=== PATIENT | female | born 1990 | race Caucasian/White ===

== ENCOUNTER 2016-11-03 06:26 | Day surgery (SDC) | payer BC ==
[~2016-11-03 06:26] MED LIST: Dextrose 5%-0.45% NaCl 1,000 ML IV SCH; Midazolam 1 MG/ML 2 ML SDV ONE; Sodium Chloride 0.9% 10 ML Syringe FLUSH PRN; fentaNYL 100 MCG/2 ML SDV ONE
[2016-11-03] MEDS ORDERED: fentaNYL 100 MCG/2 ML SDV IV ONE ×3 (07:54→16:48)
[2016-11-03] MEDS ORDERED: Midazolam 1 MG/ML 2 ML SDV IV ONE ×3 (07:55→16:48)
--- NOTE | 2016-11-03 08:56 | OR ---
DATE: 11/03/2016 PROCEDURES: Esophagogastroduodenoscopy and multiple pinch biopsies. INSTRUMENT USED: [id number] Olympus video panendoscope. PREMEDICATIONS: No oral topical anesthesia used. Fentanyl 100 mcg intravenous, Versed 2 mg intravenous. The procedure was done under pulse oximetry, BP recording, and services rep. INDICATION: The patient with persistent throat discomfort, associated chest discomfort, and regurgitation as well as dyspepsia unexplained and not responsive to medical measures, on PPI. Esophagogastroduodenoscopy is performed for detection of any active erosive lesions, H. pylori status to be determined, biopsies to be taken for esophageal eosinophilia if indicated, endoscopic hemostasis therapy if needed. DESCRIPTION OF PROCEDURE: The scope was passed with ease. Adequate visualization of the esophagus was made from proximal to distal areas. No upper esophageal lesions identified. No distal esophageal stricture. No uphill or downhill esophageal varices. No Miroslava-Ospina tear. No evidence of erosive esophagitis by [place] criteria. Z-line was seen at around 35 cm distal to the oral verge, 4-quadrant biopsies were taken from the area and sent for any histopathologic evidence of intestinal metaplasia. Four-quadrant biopsies were taken from the distal and proximal esophagus and sent for any histopathologic evidence of esophageal eosinophilia. No proximal gastric varices noted. Gastric fundus examination by retroflexion showed no malignant lesions. Diminutive benign-appearing gastric fundus polyps were noted. No gastric ulcer, malignant mass, or vascular ectasia identified. Multiple pinch biopsies were taken from the gastric antrum and proximal body and sent for PyloriTek test for H. pylori and histopathology. Duodenal bulb showed no ulcer. Visualized second part of the duodenum was unremarkable. No bleeding was noted from any of the visualized areas at the completion of examination. Photographs were taken of the duodenal bulb, gastric antrum, fundus, and distal esophagus. IMPRESSION: Diminutive gastric fundus polyps. The patient tolerated the procedure well. [facility] /[id number]
[2016-11-03 09:11] VITALS: BP 104/68
== END 2016-11-03 10:11 | disposition home or self-care (01) ==
LOC: DL.ENDO 06:26
PROVIDERS: ATTEND Internal Medicine Gastroenterology
DX: K31.7 Polyp of stomach and duodenum (principal); K20.9 Esophagitis, unspecified; K31.89 Other diseases of stomach and duodenum; F32.9 Major depressive disorder, single episode, unspecified; I10 Essential (primary) hypertension; E03.9 Hypothyroidism, unspecified; Z90.49 Acquired absence of other specified parts of digestive tract; Z88.8 Allergy status to other drugs, medicaments and biological substances; Z98.890 Other specified postprocedural states; Z79.899 Other long term (current) drug therapy
CPT/HCPCS: 43239; 87077; J2250; J3010; J7042

== ENCOUNTER 2016-12-28 07:00 | Emergency (ER) | payer BC ==
[2016-12-28 07:08] VITALS: BP 132/85
--- NOTE | 2016-12-28 07:19 | EDM.PDOC ---
ED HPI GENERAL MEDICAL PROBLEM - General Chief Complaint: Lower Extremity Injury/Pain Stated Complaint: SLIPPED AND FELL HURT ANKLE [id number] Time Seen by Provider: 12/28/16 07:14 Source of Information: Reports: Patient History Limitations: Reports: No Limitations - History of Present Illness INITIAL COMMENTS - FREE TEXT/NARRATIVE: 26 yo female presents with left ankle pain s/p SLF. C/o pain to medial aspect of left ankle after falling while outside going to her car. No other complaints. Onset: Today, Sudden Duration: Constant Location: Reports: Lower Extremity, Left Quality: Reports: Ache, Throbbing Severity: Moderate Improves with: Reports: None Worsens with: Reports: None, Movement Context: Reports: Activity Associated Symptoms: Reports: No Other Symptoms Left Upper Ankle Pain Score (Numeric/FACES): 7 - Related Data Allergies Allergy/AdvReac Type Severity Reaction Status Date / Time zolpidem [From Ambien] Allergy Hallucinati Verified 12/28/16 07:06 ons doxylamine AdvReac Hallucinati Verified 12/28/16 07:06 ons Home Meds: Home Meds Propranolol [Inderal] 20 mg PO DAILY 04/05/15 [History] Sertraline HCl [Zoloft] 100 mg PO DAILY 01/13/16 [History] Omeprazole 20 mg PO DAILY 11/03/16 [History] Levothyroxine [Levothyroxine] 25 mcg PO DAILY 12/28/16 [History] Past Medical History - Past Health History Medical/Surgical History: Denies Medical/Surgical History HEENT History: Reports: Allergic Rhinitis, Other (See Below) 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 Cardiovascular History: Reports: Arrhythmia, Hypertension, Other (See Below) Other Cardiovascular History: Tachycardia, palpitations, svt Respiratory History: Reports: None Gastrointestinal History: Reports: None Other Gastrointestinal History: Appendectomy done 2 yrs ago - 2012 Genitourinary History: Reports: None TAWER History: Reports: Other OB/BYN History: with pre eclampsia last and tachycardia Musculoskeletal History: Reports: None Neurological History: Reports: None Psychiatric History: Reports: Depression, Panic Attack, Other (See Below) Other Psychiatric History: SOMATIZATION DISORDER Endocrine/Metabolic History: Reports: Hyperthyroidism Hematologic History: Reports: None Immunologic History: Reports: None Oncologic (Cancer) History: Reports: None Dermatologic History: Reports: None - Infectious Disease History Infectious Disease History: Reports: C-Difficile, Chicken Pox - Past Surgical History Head Surgeries/Procedures: Reports: None HEENT Surgical History: Reports: Adenoidectomy, Tonsillectomy, Other (See Below) Other HEENT Surgeries/Procedures: ADENOIDECTOMY X2 Cardiovascular Surgical History: Reports: None GI Surgical History: Reports: Appendectomy Musculoskeletal Surgical History: Reports: None, Arthroscopic Knee Social & Family History - Family History Family Medical History: Noncontributory - Tobacco Use Smoking Status *Q: Never Smoker Second Hand Smoke Exposure: No - Caffeine Use Caffeine Use: Reports: Coffee, Soda, Tea Other Caffeine Use: 1 cup daily - Alcohol Use Days Per Week of Alcohol Use: 0 Number of Drinks Per Day: 1 Total Drinks Per Week: 0 - Recreational Drug Use Recreational Drug Use: No - Living Situation & Occupation Living situation: Reports: , with Spouse Occupation: Employed Review of Systems - Review of Systems Review Of Systems: ROS reveals no pertinent complaints other than HPI. ED EXAM, GENERAL - Physical Exam Exam: See Below Exam Limited By: No Limitations General Appearance: Alert, WD/WN, No Apparent Distress Respiratory/Chest: No Respiratory Distress, Lungs Clear, Normal Breath Sounds, No Accessory Muscle Use, Chest Non-Tender Cardiovascular: Normal Peripheral Pulses, Regular Rate, Rhythm, No Edema, No Gallop, No JVD, No Murmur, No Rub Extremities: Normal Inspection, No Pedal Edema, Normal Capillary Refill, Joint Swelling (mild at ankle), Leg Pain, Limited Range of Motion Neurological: Alert, Oriented, CN II-XII Intact, Normal Cognition, No Motor/ Sensory Deficits, Abnormal Gait (limps due to pain) Skin Exam: Warm, Dry, Intact, Normal Color, No Rash Course - Vital Signs Last Recorded V/S: Last Vital Signs Temp 97.6 F 12/28/16 07:08 Pulse 88 12/28/16 07:08 Resp 16 12/28/16 07:08 BP 132/85 12/28/16 07:08 Pulse Ox 100 12/28/16 07:08 - Orders/Labs/Meds Orders: Active Orders 24 hr Category Date Time Status Ankle Min 3V Lt [CR] Urgent Exams 12/28/16 07:19 Taken Meds: Medications Discontinued Medications Generic Name Dose Route Start Last Admin Trade Name Freq PRN Reason Stop Dose Admin Ketorolac Tromethamine 60 mg 12/28/16 07:20 12/28/16 07:28 Toradol IM 12/28/16 07:21 60 mg ONETIME ONE Administration - Re-Assessments/Exams Free Text/Narrative Re-Assessment/Exam: 12/28/16 07:47 No acute fractures noted Departure - Departure Time of Disposition: 07:50 Disposition: Home, Self-Care 01 Condition: Good Clinical Impression: Ankle sprain Qualifiers: Encounter type: initial encounter Involved ligament of ankle: unspecified ligament Laterality: left Qualified Code(s): S93.402A - Sprain of unspecified ligament of left ankle, initial encounter - Discharge Information Instructions: Ankle Sprain, [id number] Forms: ED Department Discharge, ED Return to Work/School Form Additional Instructions: Keep ankle iced and elevated to decrease swelling. Take Motrin for pain as needed up to three times a day. Follow up with your PCP in 1 week. Return for worsening symptoms. - My Orders Last 24 Hours: My Active Orders 12/28/16 07:19 Ankle Min 3V Lt [CR] Urgent - Assessment/Plan Last 24 Hours: My Active Orders 12/28/16 07:19 Ankle Min 3V Lt [CR] Urgent
[2016-12-28] MEDS ORDERED: Ketorolac 30 MG/ML SDV IM ONE (07:20)
== END 2016-12-28 07:58 | disposition home or self-care (01) ==
LOC: DL.ED 07:00
DX: S93.402A Sprain of unspecified ligament of left ankle, initial encounter (principal); I10 Essential (primary) hypertension; F32.9 Major depressive disorder, single episode, unspecified; Z88.8 Allergy status to other drugs, medicaments and biological substances; Z79.899 Other long term (current) drug therapy; W19.XXXA Unspecified fall, initial encounter; Y93.89 Activity, other specified; Y92.89 Other specified places as the place of occurrence of the external cause
CPT/HCPCS: 73610; 96372; 99283; J1885

== ENCOUNTER 2017-07-09 09:23 | Emergency (ER) | payer BC ==
--- NOTE | 2017-07-09 09:11 | EDM.PDOC ---
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 She sat down and "blacked out". Denies fall or head injury. Co- workers told her she was briefly unresponsive and had a "blank stare" for a few seconds then began looking around and wondered what happened. She denies fever, chills, shortness of breath, or substernal chest pain. She reports 1 weeks duration of sharp right lower chest wall/rib pain that is worse with movement and palpation. She was seen at [facility] ER on 07/06/17 for tachycardia and the Rt chest wall pain to r/o PE and treat her headache. She states that PE was r/o by CT chest, and other than an incidental UTI no other abnormalities were found (records are being obtained for review). 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 Pt had no new complaints on arrival to the ER, but during the ER stay developed a 10/10 headache that has been recurrent for this past year. Onset: Today Duration: Resolved Prior to Arrival Location: Reports: Generalized Severity: Moderate Improves with: Reports: None Worsens with: Reports: None Associated Symptoms: Reports: No Other Symptoms Chest Pain Score (Numeric/FACES): 10 - Related Data Allergies Allergy/AdvReac Type Severity Reaction Status Date / Time zolpidem [From Ambien] Allergy Hallucinati Verified 12/28/16 07:06 ons doxylamine AdvReac Hallucinati Verified 12/28/16 07:06 ons Home Meds: Home Meds Propranolol [Inderal] 20 mg PO DAILY 04/05/15 [History] Sertraline HCl [Zoloft] 100 mg PO DAILY 01/13/16 [History] Omeprazole 20 mg PO DAILY 11/03/16 [History] Levothyroxine 25 mcg PO DAILY 12/28/16 [History] Past Medical History - Past Health History Medical/Surgical History: Denies Medical/Surgical History HEENT History: Reports: Allergic Rhinitis, Other (See Below) 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 Cardiovascular History: Reports: Arrhythmia, Hypertension, Other (See Below) Other Cardiovascular History: Tachycardia, palpitations, svt Respiratory History: Reports: None Gastrointestinal History: Reports: None Other Gastrointestinal History: Appendectomy done 2 yrs ago - 2012 Genitourinary History: Reports: None WELT SLASHER History: Reports: Other OB/BYN History: with pre eclampsia last and tachycardia Musculoskeletal History: Reports: RA, SLE Neurological History: Reports: None Psychiatric History: Reports: Anxiety, Depression, Panic Attack, Other (See Below) Other Psychiatric History: SOMATIZATION DISORDER Endocrine/Metabolic History: Reports: Hyperthyroidism Hematologic History: Reports: None Immunologic History: Reports: None Oncologic (Cancer) History: Reports: None Dermatologic History: Reports: None - Infectious Disease History Infectious Disease History: Reports: C-Difficile, Chicken Pox - Past Surgical History Head Surgeries/Procedures: Reports: None HEENT Surgical History: Reports: Adenoidectomy, Tonsillectomy, Other (See Below) Other HEENT Surgeries/Procedures: ADENOIDECTOMY X2 Cardiovascular Surgical History: Reports: None GI Surgical History: Reports: Appendectomy Musculoskeletal Surgical History: Reports: None, Arthroscopic Knee Social & Family History - Family History Family Medical History: Noncontributory - Tobacco Use Smoking Status *Q: Never Smoker Second Hand Smoke Exposure: No - Caffeine Use Caffeine Use: Reports: Coffee, Soda, Tea Other Caffeine Use: 1 cup daily - Alcohol Use Days Per Week of Alcohol Use: 0 Number of Drinks Per Day: 1 Total Drinks Per Week: 0 - Recreational Drug Use Recreational Drug Use: No - Living Situation & Occupation Living situation: Reports: , with Spouse Occupation: Employed ED ROS GENERAL - Review of Systems Review Of Systems: ROS reveals no pertinent complaints other than HPI. ED EXAM, GENERAL - Physical Exam Exam: See Below Exam Limited By: No Limitations General Appearance: Alert, WD/WN, No Apparent Distress, Anxious Eye Exam: Bilateral Eye: EOMI, Normal Inspection, PERRL Ears: Normal External Exam, Normal Canal, Hearing Grossly Normal, Normal TMs Nose: Normal Inspection, Normal Mucosa, No Blood Throat/Mouth: Normal Inspection, Normal Lips, Normal Teeth, Normal Gums, Normal Oropharynx, Normal Voice, No Airway Compromise Neck: Normal Inspection, Supple, Non-Tender, Full Range of Motion. No: Lymphadenopathy (L), Lymphadenopathy (R) Respiratory/Chest: No Respiratory Distress, Lungs Clear, Normal Breath Sounds, No Accessory Muscle Use, Chest Non-Tender Cardiovascular: Normal Peripheral Pulses, Regular Rate, Rhythm, No Edema, No Gallop, No JVD, No Murmur, No Rub, Tachycardia GI/Abdominal: Normal Bowel Sounds, Soft, Non-Tender, No Distention. No: Guarding, Rigid, Rebound (Female) Exam: Deferred Rectal (Female) Exam: Deferred Back Exam: Normal Inspection, Full Range of Motion. No: CVA Tenderness (L), CVA Tenderness (R) Extremities: Normal Range of Motion, Non-Tender, No Pedal Edema, Normal Capillary Refill Neurological: Alert, Oriented, CN II-XII Intact, Normal Cognition, Normal Gait, Normal Reflexes, No Motor/Sensory Deficits Psychiatric: Anxious Skin Exam: Warm, Dry, Intact, Normal Color, No Rash EKG INTERPRETATION EKG Date: 07/09/17 Time: 08:52 Rhythm: Other (Sinus Tach) Rate (Beats/Min): 106 [place]: Normal P-Wave: Present QRS: Normal ST-T: Other (nonspecific T-wave abnormalities inferior leads) QT: Normal Comparison: No Change Course - Vital Signs Last Recorded V/S: Last Vital Signs Temp 37.1 C 07/09/17 09:00 Pulse 111 H 07/09/17 09:00 Resp 24 H 07/09/17 09:00 BP 137/92 H 07/09/17 09:00 Pulse Ox 100 07/09/17 09:00 Orthostatic Blood Pressure [ 123/94 Standing] Orthostatic Blood Pressure [ 120/90 Sitting] Orthostatic Blood Pressure [ 117/75 Supine] - Orders/Labs/Meds Orders: Active Orders 24 hr Category Date Time Status Cardiac Monitoring [RC] . DIRECTED Care 07/09/17 09:25 Active EKG 12 Lead [EKG Documentation Completion] [RC] STAT Care 07/09/17 09:24 Active EKG Documentation Completion [RC] STAT Care 07/09/17 09:15 Active Orthostatic Vital Signs [RC] ASDIRECTED Care 07/09/17 09:23 Active Peripheral IV Care [RC] . DIRECTED Care 07/09/17 09:25 Active CHLAMYDIA AND GONORRHEA BY TMA Routine Lab 07/09/17 09:48 Received CULTURE URINE [RM] Stat Lab 07/09/17 09:48 Received DRUG SCREEN URINE BIORAD [URCHEM] Stat Lab 07/09/17 09:48 Ordered HCG QUALITATIVE,URINE [URCHEM] Stat Lab 07/09/17 09:48 Ordered UA W/MICROSCOPIC [URIN] Stat Lab 07/09/17 09:48 Ordered Magnesium Sulfate/D5W [Magnesium 1 GM in D5W 100 ML] 2 Med 07/09/17 10:22 Active gm Premix Bag 1 bag IV ONETIME Sodium Chloride 0.9% [Normal Saline] 1,000 ml Med 07/09/17 10:19 Active IV .BOLUS Sodium Chloride 0.9% [Saline Flush] Med 07/09/17 09:25 Active 10 ml FLUSH ASDIRECTED PRN Peripheral IV Insertion Adult [OM.PC] Stat Oth 07/09/17 09:24 Ordered Medication Orders Sodium Chloride (Normal Saline) 1,000 mls @ 999 mls/hr IV .BOLUS ONE Stop: 07/09/17 11:19 Last Admin: 07/09/17 10:49 Dose: 999 mls/hr Magnesium Sulfate/Dextrose 2 (gm/ Premix) 200 mls @ 100 mls/hr IV ONETIME ONE Stop: 07/09/17 12:21 Last Admin: 07/09/17 10:50 Dose: 100 mls/hr Sodium Chloride (Saline Flush) 10 ml FLUSH ASDIRECTED PRN PRN Reason: Keep Vein Open Last Admin: 07/09/17 10:05 Dose: 10 ml Labs: Laboratory Tests 07/09/17 07/09/17 07/09/17 Range/Units 09:37 09:37 09:37 WBC 8.8 (5.0-10.0) 10^3/uL RBC 4.35 (4.2-5.4) 10^6/uL Hgb 13.1 (12.0-16.0) g/dL Hct 38.2 (37.0-47.0) % MCV 87.8 D (80-100) fL MCH 30.1 (27.0-34.0) pg MCHC 34.3 (33.0-35.0) g/dL Plt Count 292 (150-450) 10^3/uL Neut % (Auto) 70.3 (42.2-75.2) % Lymph % (Auto) 21.1 (20.5-50.1) % Nance % (Auto) 7.8 (2-8) % Eos % (Auto) 0.6 L (1.0-3.0) % Baso % (Auto) 0.2 (0.0-1.0) % Sodium 139 (135-145) mmol/L Potassium 3.5 L (3.6-5.0) mmol/L Chloride 107 (101-111) mmol/L Carbon Dioxide 20.0 L (21.0-31.0) mmol/L Anion Gap 15.5 BUN 9 (7-18) mg/dL Creatinine 0.6 (0.6-1.3) mg/dL Est Cr Clr Drug Dosing TNP Estimated GFR (MDRD) > 60 BUN/Creatinine Ratio 15.00 Glucose 108 H (74-105) mg/dL Calcium 8.7 (8.4-10.2) mg/dl Magnesium 1.6 L (1.8-2.5) mg/dL Total Bilirubin 0.6 (0.2-1.0) mg/dL AST 36 (10-42) IU/L ALT 59 (10-60) IU/L Alkaline Phosphatase 47 (42-121) IU/L Troponin I < 0.02 (0.00-0.02) ng/ml C-Reactive Protein 0.6 (0.0-1.3) mg/dL Total Protein 7.5 (6.7-8.2) g/dl Albumin 4.5 (3.2-5.5) g/dl Globulin 3.0 Albumin/Globulin Ratio 1.50 TSH, Ultra Sensitive 2.85 (0.45-5.33) uIu/mL Urine Color (YELLOW) Urine Appearance (CLEAR) Urine pH (5.0-9.0) Ur Specific [place] (1.005-1.030) Urine Protein (NEGATIVE) Urine Glucose (UA) (NEGATIVE) Urine Ketones (NEGATIVE) Urine Occult Blood (NEGATIVE) Urine Nitrite (NEGATIVE) Urine Bilirubin (NEGATIVE) Urine Urobilinogen (0.2-1.0) mg/dL Ur Leukocyte Esterase (NEGATIVE) Urine RBC /HPF Urine WBC (0-5/HPF) /HPF Ur Epithelial Cells /HPF Amorphous Sediment (0/HPF) /HPF Urine Bacteria (0-FEW/HPF) /HPF Urine Mucus /LPF Urine HCG, Qual Urine Opiates Screen (NEGATIVE) Ur Oxycodone Screen (NEGATIVE) Urine Methadone Screen (NEGATIVE) Ur Barbiturates Screen (NEGATIVE) U Tricyclic Antidepress (NEGATIVE) Ur Phencyclidine Scrn (NEGATIVE) Ur Amphetamine Screen (NEGATIVE) U Methamphetamines Scrn (NEGATIVE) Urine MDMA Screen (NEGATIVE) U Benzodiazepines Scrn (NEGATIVE) Urine Cocaine Screen (NEGATIVE) U Marijuana (THC) Screen (NEGATIVE) 07/09/17 07/09/17 07/09/17 Range/Units 09:48 09:48 09:48 WBC (5.0-10.0) 10^3/uL RBC (4.2-5.4) 10^6/uL Hgb (12.0-16.0) g/dL Hct (37.0-47.0) % MCV (80-100) fL MCH (27.0-34.0) pg MCHC (33.0-35.0) g/dL Plt Count (150-450) 10^3/uL Neut % (Auto) (42.2-75.2) % Lymph % (Auto) (20.5-50.1) % Nance % (Auto) (2-8) % Eos % (Auto) (1.0-3.0) % Baso % (Auto) (0.0-1.0) % Sodium (135-145) mmol/L Potassium (3.6-5.0) mmol/L Chloride (101-111) mmol/L Carbon Dioxide (21.0-31.0) mmol/L Anion Gap BUN (7-18) mg/dL Creatinine (0.6-1.3) mg/dL Est Cr Clr Drug Dosing Estimated GFR (MDRD) BUN/Creatinine Ratio Glucose (74-105) mg/dL Calcium (8.4-10.2) mg/dl Magnesium (1.8-2.5) mg/dL Total Bilirubin (0.2-1.0) mg/dL AST (10-42) IU/L ALT (10-60) IU/L Alkaline Phosphatase (42-121) IU/L Troponin I (0.00-0.02) ng/ml C-Reactive Protein (0.0-1.3) mg/dL Total Protein (6.7-8.2) g/dl Albumin (3.2-5.5) g/dl Globulin Albumin/Globulin Ratio TSH, Ultra Sensitive (0.45-5.33) uIu/mL Urine Color Dark yellow (YELLOW) Urine Appearance Cloudy (CLEAR) Urine pH 5.5 (5.0-9.0) Ur Specific [place] >= 1.030 (1.005-1.030) Urine Protein 30 H (NEGATIVE) Urine Glucose (UA) Negative (NEGATIVE) Urine Ketones Negative (NEGATIVE) Urine Occult Blood Negative (NEGATIVE) Urine Nitrite Negative (NEGATIVE) Urine Bilirubin Negative (NEGATIVE) Urine Urobilinogen 0.2 (0.2-1.0) mg/dL Ur Leukocyte Esterase Trace H (NEGATIVE) Urine RBC 0-5 /HPF Urine WBC 40-50 H (0-5/HPF) /HPF Ur Epithelial Cells Many H /HPF Amorphous Sediment Few (0/HPF) /HPF Urine Bacteria Many H (0-FEW/HPF) /HPF Urine Mucus Moderate H /LPF Urine HCG, Qual Negative Urine Opiates Screen Negative (NEGATIVE) Ur Oxycodone Screen Negative (NEGATIVE) Urine Methadone Screen Negative (NEGATIVE) Ur Barbiturates Screen Negative (NEGATIVE) U Tricyclic Antidepress Negative (NEGATIVE) Ur Phencyclidine Scrn Negative (NEGATIVE) Ur Amphetamine Screen Negative (NEGATIVE) U Methamphetamines Scrn Negative (NEGATIVE) Urine MDMA Screen Negative (NEGATIVE) U Benzodiazepines Scrn Negative (NEGATIVE) Urine Cocaine Screen Negative (NEGATIVE) U Marijuana (THC) Screen Negative (NEGATIVE) Meds: Medications Generic Name Dose Route Start Last Admin Trade Name Freq PRN Reason Stop Dose Admin Sodium Chloride 1,000 mls @ 999 mls/hr 07/09/17 10:19 07/09/17 10:49 Normal Saline IV 07/09/17 11:19 999 mls/hr .BOLUS ONE Administration Magnesium Sulfate/Dextrose 2 200 mls @ 100 mls/hr 07/09/17 10:22 07/09/17 10: 50 gm/ Premix IV 07/09/17 12:21 100 mls/hr ONETIME ONE Administration Sodium Chloride 10 ml 07/09/17 09:25 07/09/17 10:05 Saline Flush FLUSH 10 ml ASDIRECTED PRN Administration Keep Vein Open Discontinued Medications Generic Name Dose Route Start Last Admin Trade Name Horacioq PRN Reason Stop Dose Admin Dexamethasone 12 mg 07/09/17 10:20 07/09/17 10:49 Dexamethasone IVPUSH 07/09/17 10:21 12 mg ONETIME ONE Administration Diphenhydramine HCl 25 mg 07/09/17 10:19 07/09/17 10:49 Benadryl IVPUSH 07/09/17 10:20 25 mg ONETIME ONE Administration Hydromorphone HCl 1 mg 07/09/17 10:21 07/09/17 10:49 Dilaudid IVPUSH 07/09/17 10:22 1 mg ONETIME ONE Administration Ceftriaxone Sodium 1,000 mg/ 50 mls @ 100 mls/hr 07/09/17 10:27 07/09/17 10: 51 Sodium Chloride IV 07/09/17 10:56 100 mls/hr ONETIME ONE Administration - Radiology Interpretation Free Text/Narrative:: CXR: no acute process per Rad. report. Departure - Departure Time of Disposition: 11:15 Disposition: Home, Self-Care 01 Condition: Good Clinical Impression: Recurrent headache, Chronic tachycardia, History of systemic lupus erythematosus (SLE) Syncope Qualifiers: Syncope type: unspecified Qualified Code(s): R55 - Syncope and collapse UTI (urinary tract infection) Qualifiers: Urinary tract infection type: site unspecified Hematuria presence: without hematuria Qualified Code(s): N39.0 - Urinary tract infection, site not specified - Discharge Information Instructions: Sinus Tachycardia, Urinary Tract Infection, Adult, Syncope, Easy- to-Read Forms: ED Department Discharge Additional Instructions: Rx: Macrobid 100mg Off work today to rest. Follow up in clinic with your doctor next week for recheck and further evaluation if needed. - My Orders Last 24 Hours: My Active Orders 07/09/17 09:15 EKG Documentation Completion [RC] STAT 07/09/17 09:23 Orthostatic Vital Signs [RC] ASDIRECTED 07/09/17 09:24 EKG 12 Lead [EKG Documentation Completion] [RC] STAT Peripheral IV Insertion Adult [OM.PC] Stat 07/09/17 09:25 Cardiac Monitoring [RC] . DIRECTED Peripheral IV Care [RC] . DIRECTED Sodium Chloride 0.9% [Saline Flush] 10 ml FLUSH ASDIRECTED PRN 07/09/17 09:48 CHLAMYDIA AND GONORRHEA BY TMA Routine CULTURE URINE [RM] Stat DRUG SCREEN URINE BIORAD [URCHEM] Stat HCG QUALITATIVE,URINE [URCHEM] Stat UA W/MICROSCOPIC [URIN] Stat 07/09/17 10:19 Sodium Chloride 0.9% [Normal Saline] 1,000 ml IV .BOLUS 07/09/17 10:22 Magnesium Sulfate/D5W [Magnesium 1 GM in D5W 100 ML] 2 gm Premix Bag 1 bag IV ONETIME - Assessment/Plan Last 24 Hours: My Active Orders 07/09/17 09:15 EKG Documentation Completion [RC] STAT 07/09/17 09:23 Orthostatic Vital Signs [RC] ASDIRECTED 07/09/17 09:24 EKG 12 Lead [EKG Documentation Completion] [RC] STAT Peripheral IV Insertion Adult [OM.PC] Stat 07/09/17 09:25 Cardiac Monitoring [RC] . DIRECTED Peripheral IV Care [RC] . DIRECTED Sodium Chloride 0.9% [Saline Flush] 10 ml FLUSH ASDIRECTED PRN 07/09/17 09:48 CHLAMYDIA AND GONORRHEA BY TMA Routine CULTURE URINE [RM] Stat DRUG SCREEN URINE BIORAD [URCHEM] Stat HCG QUALITATIVE,URINE [URCHEM] Stat UA W/MICROSCOPIC [URIN] Stat 07/09/17 10:19 Sodium Chloride 0.9% [Normal Saline] 1,000 ml IV .BOLUS 07/09/17 10:22 Magnesium Sulfate/D5W [Magnesium 1 GM in D5W 100 ML] 2 gm Premix Bag 1 bag IV ONETIME
[2017-07-09] MEDS ORDERED: Sodium Chloride 0.9% 10 ML Syringe FLUSH PRN (09:25)
[2017-07-09 10:03] LABS: CHLORIDE,CL 107 mmol/L (101-111); SODIUM,NA 139 mmol/L (135-145)
--- NOTE | 2017-07-09 10:14 | CR ---
Clinical history: 27-year-old female syncopal episode and tachycardia. Interpretation: Negative exam. Normal cardiac silhouette and bony thorax. No cephalization of vascular flow, signs of alveolar edema or dependent pleural effusion. No lung mass or hilar lymphadenopathy. No lobar pneumonia, atelectasis/collapse, air trapping or pneumothorax.
[2017-07-09] MEDS ORDERED: diphenhydrAMINE 50 MG/ML SDV IVPUSH ONE (10:19)
[2017-07-09] MEDS ORDERED: Sodium Chloride 0.9% 1,000 ML IV ONE (10:19)
[2017-07-09] MEDS ORDERED: Dexamethasone 4 MG/ML SDV IVPUSH ONE (10:20)
[2017-07-09] MEDS ORDERED: HYDROmorphone 0.5 MG/0.5 ML Syringe IVPUSH ONE (10:21)
[2017-07-09] MEDS ORDERED: Magnesium Sulfate/D5W 2 GM in Premix Bag 1 BAG IV ONE (10:22)
[2017-07-09] MEDS ORDERED: cefTRIAXone 1,000 MG in Sodium Chloride 0.9% 50 ML IV ONE (10:27)
[2017-07-09 12:51] VITALS: BP 116/68
--- NOTE | 2017-07-13 13:42 | EKG ---
07/09/2017 - GOLDIE BALDERRAMA - TIME: 8:52 a.m. EKG shows sinus tachycardia at 106. [facility] /[id number]
== END 2017-07-09 13:23 | disposition home or self-care (01) ==
LOC: DL.ED 09:23
DX: N39.0 Urinary tract infection, site not specified (principal); R00.0 Tachycardia, unspecified; R55 Syncope and collapse; R51 Headache; Z87.898 Personal history of other specified conditions; Z88.8 Allergy status to other drugs, medicaments and biological substances; Z79.899 Other long term (current) drug therapy
CPT/HCPCS: 36415; 71046; 80053; 80305; 81001; 81025; 83735; 84443; 84484; 85025; 86140; 87086; 87491; 87591; 93005; 96365; 96366; 96375; 99284; J0696; J1100; J1170; J1200; J3475; J7030; J7050

== ENCOUNTER 2017-10-16 11:07 | Emergency (ER) | payer BC ==
[2017-10-16 12:05] LABS: ANION GAP 12.5; CHLORIDE,CL 106 mmol/L (101-111); SODIUM,NA 137 mmol/L (135-145)
[2017-10-16] MEDS ORDERED: Aspirin 325 MG Tab PO ONE (14:33)
--- NOTE | 2017-10-16 14:37 | EDM.PDOC ---
Scribed by Fiordaliza Jones 10/16/17 [id number] for Konrad Robertson PA ED HPI GENERAL MEDICAL PROBLEM - General Chief Complaint: Chest Pain Stated Complaint: CHEST PAIN, PAIN BACK OF LEFT CALF Time Seen by Provider: 10/16/17 11:30 Source of Information: Reports: Patient, RN, RN Notes Reviewed History Limitations: Reports: No Limitations - History of Present Illness INITIAL COMMENTS - FREE TEXT/NARRATIVE: Patient state yesterday she had pain posterior left calf. Last night she had increased shortness of breath and chest pain. Today she was working since 0500a.m. She had shortness of breath and pressure in her chest. She also has continued pain in the left calf. She is suppose to take aspirin (not taking) due to a "clotting disorder". Onset: Gradual Duration: Getting Worse Location: Reports: Chest, Lower Extremity, Left Quality: Reports: Ache Severity: Moderate Improves with: Reports: None Worsens with: Reports: None Associated Symptoms: Reports: No Other Symptoms Left Lower Leg Pain Score (Numeric/FACES): 5 Anterior Chest Pain Score (Numeric/FACES): 4 - Related Data Allergies Allergy/AdvReac Type Severity Reaction Status Date / Time zolpidem [From Ambien] Allergy Hallucinati Verified 12/28/16 07:06 ons doxylamine AdvReac Hallucinati Verified 12/28/16 07:06 ons Home Meds: Home Meds Propranolol [Inderal] 20 mg PO DAILY 04/05/15 [History] Omeprazole 20 mg PO DAILY PRN 11/03/16 [History] Levothyroxine 25 mcg PO DAILY 12/28/16 [History] Aspirin 1 tab PO DAILY 10/16/17 [History] DULoxetine HCl [Duloxetine HCl] 1 tab PO DAILY 10/16/17 [History] predniSONE [Prednisone] 1 mg PO DAILY 10/16/17 [History] Past Medical History - Past Health History Medical/Surgical History: Denies Medical/Surgical History HEENT History: Reports: Allergic Rhinitis, Other (See Below) 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 fatty liver (ultrasound neft week). Sees Dr. 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 History: with pre eclampsia last and tachycardia Musculoskeletal History: Reports: RA, SLE Neurological History: Reports: None Psychiatric History: Reports: Anxiety, Depression, Panic Attack, Other (See Below) Other Psychiatric History: SOMATIZATION DISORDER Endocrine/Metabolic History: Reports: Hyperthyroidism Hematologic History: Reports: None Immunologic History: Reports: SLE Oncologic (Cancer) History: Reports: None Dermatologic History: Reports: None - Infectious Disease History Infectious Disease History: Reports: C-Difficile, Chicken Pox - Past Surgical History Head Surgeries/Procedures: Reports: None HEENT Surgical History: Reports: Adenoidectomy, Tonsillectomy, Other (See Below) Other HEENT Surgeries/Procedures: ADENOIDECTOMY X2 Cardiovascular Surgical History: Reports: None GI Surgical History: Reports: Appendectomy Musculoskeletal Surgical History: Reports: None, Arthroscopic Knee Social & Family History - Family History Family Medical History: Noncontributory - Caffeine Use Caffeine Use: Reports: Coffee, Soda, Tea Other Caffeine Use: 1 cup daily - Living Situation & Occupation Living situation: Reports: , with Spouse Occupation: Employed ED ROS GENERAL - Review of Systems Review Of Systems: ROS reveals no pertinent complaints other than HPI. ED EXAM, GENERAL - Physical Exam Exam: See Below Exam Limited By: No Limitations General Appearance: Alert, WD/WN, No Apparent Distress Eye Exam: Bilateral Eye: Normal Inspection Ears: Normal External Exam, Normal Canal, Hearing Grossly Normal, Normal TMs Nose: Normal Inspection, Normal Mucosa, No Blood Throat/Mouth: Normal Inspection, Normal Lips, Normal Teeth, Normal Gums, Normal Oropharynx, Normal Voice, No Airway Compromise Head: Atraumatic, Normocephalic Neck: Normal Inspection, Supple, Non-Tender, Full Range of Motion Respiratory/Chest: No Respiratory Distress, Lungs Clear, Normal Breath Sounds, No Accessory Muscle Use, Chest Non-Tender Cardiovascular: Normal Peripheral Pulses, Regular Rate, Rhythm, No Edema, No Gallop, No JVD, No Murmur, No Rub GI/Abdominal: Normal Bowel Sounds, Soft, Non-Tender, No Organomegaly, No Distention, No Abnormal Bruit, No Mass (Female) Exam: Deferred Rectal (Female) Exam: Deferred Back Exam: Normal Inspection, Full Range of Motion, NT Extremities: Other (Left mid posterior calf tenderness to palpation with increased pain with ankle flexion.) Neurological: Alert, Oriented, CN II-XII Intact, Normal Cognition, Normal Gait, Normal Reflexes, No Motor/Sensory Deficits Psychiatric: Normal Affect, Normal Mood Skin Exam: Warm, Dry, Intact, Normal Color, No Rash Lymphatic: No Adenopathy Course - Vital Signs Last Recorded V/S: Last Vital Signs Temp 37.1 C 10/16/17 11:10 Pulse 88 10/16/17 11:10 Resp 18 10/16/17 11:10 BP 131/97 H 10/16/17 11:10 Pulse Ox 99 10/16/17 11:10 - Orders/Labs/Meds Orders: Active Orders 24 hr Category Date Time Status EKG Documentation Completion [RC] URGENT Care 10/16/17 11:29 Ordered Venous Doppler Lwr Ext Lt [US] Urgent Exams 10/16/17 12:09 Ordered Labs: Laboratory Tests 10/16/17 10/16/17 10/16/17 Range/Units 11:40 11:40 11:40 WBC 8.7 (5.0-10.0) 10^3/uL RBC 3.85 L (4.2-5.4) 10^6/uL Hgb 11.6 L D (12.0-16.0) g/dL Hct 34.5 L (37.0-47.0) % MCV 89.6 (80-100) fL MCH 30.1 (27.0-34.0) pg MCHC 33.6 (33.0-35.0) g/dL Plt Count 259 (150-450) 10^3/uL Neut % (Auto) 66.0 (42.2-75.2) % Lymph % (Auto) 22.0 (20.5-50.1) % [place] % (Auto) 10.1 H (2-8) % Eos % (Auto) 1.7 (1.0-3.0) % Baso % (Auto) 0.2 (0.0-1.0) % PT 9.5 (9.0-12.0) SEC INR 1.0 (0.9-1.2) D-Dimer, Quantitative < 100 (0-400) ng/mL Sodium 137 (135-145) mmol/L Potassium 3.5 L (3.6-5.0) mmol/L Chloride 106 (101-111) mmol/L Carbon Dioxide 22.0 (21.0-31.0) mmol/L Anion Gap 12.5 BUN 10 (7-18) mg/dL Creatinine 0.7 (0.6-1.3) mg/dL Est Cr Clr Drug Dosing 92.71 mL/min Estimated GFR (MDRD) > 60 BUN/Creatinine Ratio 14.28 Glucose 85 (74-105) mg/dL Calcium 9.1 (8.4-10.2) mg/dl Total Bilirubin 0.4 (0.2-1.0) mg/dL AST 34 (10-42) IU/L ALT 59 (10-60) IU/L Alkaline Phosphatase 59 (42-121) IU/L Troponin I < 0.02 (0.00-0.02) ng/ml Total Protein 7.1 (6.7-8.2) g/dl Albumin 4.2 (3.2-5.5) g/dl Globulin 2.9 Albumin/Globulin Ratio 1.45 Departure - Departure Time of Disposition: 14:34 Disposition: Home, Self-Care 01 Condition: Fair Clinical Impression: Deep vein thrombosis (DVT) of left lower extremity Qualifiers: Affected thrombotic vein of extremity: popliteal Chronicity: acute Qualified Code(s): I82.432 - Acute embolism and thrombosis of left popliteal vein Instructions: Venous Thromboembolism Prevention, Deep Vein Thrombosis Forms: ED Department Discharge Care Plan Goals: The patient was advised of the examination, lab, EKG and ultrasound results during the visit. The patient was given a dose of Aspirin while in the ED. The patient was encouraged to take her daily aspirin as previously directed. The patient should follow-up with her primary care facility for continued evaluation and further management. If the patient has any additional symptoms or concerns, the patient should either follow-up with her primary care facility or return to the emergency department. - My Orders Last 24 Hours: My Active Orders 10/16/17 11:29 EKG Documentation Completion [RC] URGENT 10/16/17 12:09 Venous Doppler Lwr Ext Lt [US] Urgent - Assessment/Plan Last 24 Hours: My Active Orders 10/16/17 11:29 EKG Documentation Completion [RC] URGENT 10/16/17 12:09 Venous Doppler Lwr Ext Lt [US] Urgent I have read and agree with the documentation that has been completed regarding this visit. By signing this record, I attest that the documentation was completed in my physical presence and is an accurate record of the encounter.
[2017-10-16 14:41] VITALS: BP 113/79
== END 2017-10-16 14:52 | disposition home or self-care (01) ==
LOC: DL.ED 11:07
DX: I82.432 Acute embolism and thrombosis of left popliteal vein (principal); I10 Essential (primary) hypertension; Z79.899 Other long term (current) drug therapy; Z79.82 Long term (current) use of aspirin; Z88.8 Allergy status to other drugs, medicaments and biological substances
CPT/HCPCS: 36415; 80053; 84484; 85025; 85379; 85610; 93005; 93971; 99285; A9270

== ENCOUNTER 2017-10-21 17:58 | Emergency (ER) | payer BC ==
[2017-10-21 18:45] LABS: ANION GAP 11.3; CHLORIDE,CL 107 mmol/L (101-111); SODIUM,NA 137 mmol/L (135-145)
[2017-10-21] MEDS: Warfarin 5 MG Tab PO ONE (18:45)
--- NOTE | 2017-10-21 18:45 | EDM.PDOC ---
Scribed by Fiordaliza Jones 10/21/17 [id number] for Konrad Robertson PA ED HPI GENERAL MEDICAL PROBLEM - General Chief Complaint: Lower Extremity Injury/Pain Stated Complaint: BLOOD CLOT IN LEG Time Seen by Provider: 10/21/17 18:00 Source of Information: Reports: Patient, Provider, RN, RN Notes Reviewed History Limitations: Reports: No Limitations - History of Present Illness INITIAL COMMENTS - FREE TEXT/NARRATIVE: Patient is a 27-year-old female with left posterior calf pain. She had an ultrasound at [facility] today and showed a small DVT left popliteal. She was called by Dr. Barraza (rheumatology) requesting Lovenox and full anticoagulation study. Onset: Today Duration: Getting Worse Location: Reports: Lower Extremity, Left Quality: Reports: Ache Severity: Mild Improves with: Reports: None Worsens with: Reports: None Associated Symptoms: Reports: No Other Symptoms Left Lower Leg Pain Score (Numeric/FACES): 5 - Related Data Allergies Allergy/AdvReac Type Severity Reaction Status Date / Time zolpidem [From Ambien] Allergy Hallucinati Verified 10/21/17 18:01 ons doxylamine AdvReac Hallucinati Verified 10/21/17 18:01 ons Home Meds: Home Meds Propranolol [Inderal] 20 mg PO DAILY 04/05/15 [History] Omeprazole 20 mg PO DAILY PRN 11/03/16 [History] Levothyroxine 25 mcg PO DAILY 12/28/16 [History] Aspirin 1 tab PO DAILY 10/16/17 [History] DULoxetine HCl [Duloxetine HCl] 1 tab PO DAILY 10/16/17 [History] predniSONE [Prednisone] 1 mg PO DAILY 10/16/17 [History] Past Medical History - Past Health History Medical/Surgical History: Denies Medical/Surgical History HEENT History: Reports: Allergic Rhinitis, Other (See Below) 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 Cardiovascular History: Reports: Arrhythmia, Hypertension, Other (See Below) Other Cardiovascular History: Tachycardia, palpitations, svt Respiratory History: Reports: None Gastrointestinal History: Reports: Other (See Below) Other Gastrointestinal History: Appendectomy done 2 yrs ago - 2012 Genitourinary History: Reports: None 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 pre eclampsia last and tachycardia Musculoskeletal History: Reports: RA, SLE Neurological History: Reports: None Psychiatric History: Reports: Anxiety, Depression, Panic Attack, Other (See Below) Other Psychiatric History: SOMATIZATION DISORDER Endocrine/Metabolic History: Reports: Hyperthyroidism Hematologic History: Reports: None Immunologic History: Reports: SLE Other Immunologic History: Lupus Oncologic (Cancer) History: Reports: None Dermatologic History: Reports: None - Infectious Disease History Infectious Disease History: Reports: C-Difficile, Chicken Pox - Past Surgical History Head Surgeries/Procedures: Reports: None HEENT Surgical History: Reports: Adenoidectomy, Tonsillectomy, Other (See Below) Other HEENT Surgeries/Procedures: ADENOIDECTOMY X2 Cardiovascular Surgical History: Reports: None GI Surgical History: Reports: Appendectomy Musculoskeletal Surgical History: Reports: None, Arthroscopic Knee Social & Family History - Family History Family Medical History: Noncontributory - Tobacco Use Smoking Status *Q: Never Smoker Second Hand Smoke Exposure: No - Caffeine Use Caffeine Use: Reports: None Other Caffeine Use: 1 cup daily - Recreational Drug Use Recreational Drug Use: No - Living Situation & Occupation Living situation: Reports: , with Spouse Occupation: Employed Review of Systems - Review of Systems Review Of Systems: ROS reveals no pertinent complaints other than HPI. ED EXAM, GENERAL - Physical Exam Exam: See Below Exam Limited By: No Limitations General Appearance: Alert, WD/WN, No Apparent Distress Eye Exam: Bilateral Eye: EOMI, Normal Inspection, PERRL Ears: Normal External Exam, Normal Canal, Hearing Grossly Normal, Normal TMs Nose: Normal Inspection, Normal Mucosa, No Blood Throat/Mouth: Normal Inspection, Normal Lips, Normal Teeth, Normal Gums, Normal Oropharynx, Normal Voice, No Airway Compromise Head: Atraumatic, Normocephalic Neck: Normal Inspection, Supple, Non-Tender, Full Range of Motion Respiratory/Chest: No Respiratory Distress, Lungs Clear, Normal Breath Sounds, No Accessory Muscle Use, Chest Non-Tender Cardiovascular: Normal Peripheral Pulses, Regular Rate, Rhythm, No Edema, No Gallop, No JVD, No Murmur, No Rub GI/Abdominal: Normal Bowel Sounds, Soft, Non-Tender, No Organomegaly, No Distention, No Abnormal Bruit, No Mass (Female) Exam: Deferred Rectal (Female) Exam: Deferred Back Exam: Normal Inspection, Full Range of Motion, NT Extremities: Other (left calf pain) Neurological: Alert, Oriented, CN II-XII Intact, Normal Cognition, Normal Gait, Normal Reflexes, No Motor/Sensory Deficits Psychiatric: Normal Affect, Normal Mood Skin Exam: Warm, Dry, Intact, Normal Color, No Rash Course - Vital Signs Last Recorded V/S: Last Vital Signs Temp 37.2 C 10/21/17 18:07 Pulse 88 10/21/17 18:07 Resp 16 10/21/17 18:07 BP 140/97 H 10/21/17 18:07 Pulse Ox 100 10/21/17 18:07 - Orders/Labs/Meds Orders: Active Orders 24 hr Category Date Time Status COMPREHENSIVE METABOLIC PN,CMP [CHEM] Urgent Lab 10/21/17 18:14 Received INR,PT,PROTHROMBIN TIME [COAG] Stat Lab 10/21/17 18:14 Received Labs: Laboratory Tests 10/21/17 Range/Units 18:14 WBC 8.3 (5.0-10.0) 10^3/uL RBC 4.11 L (4.2-5.4) 10^6/uL Hgb 12.3 (12.0-16.0) g/dL Hct 37.0 (37.0-47.0) % MCV 90.0 (80-100) fL MCH 29.9 (27.0-34.0) pg MCHC 33.2 (33.0-35.0) g/dL Plt Count 296 (150-450) 10^3/uL Neut % (Auto) 66.2 (42.2-75.2) % Lymph % (Auto) 25.5 (20.5-50.1) % [place] % (Auto) 6.6 (2-8) % Eos % (Auto) 1.3 (1.0-3.0) % Baso % (Auto) 0.4 (0.0-1.0) % Meds: Medications Discontinued Medications Generic Name Dose Route Start Last Admin Trade Name Freq PRN Reason Stop Dose Admin Enoxaparin Sodium 70 mg 10/21/17 18:26 Lovenox SUBCUT 10/21/17 18:27 ONETIME ONE Warfarin Sodium 5 mg 10/21/17 18:26 Coumadin PO 10/21/17 18:27 ONETIME ONE Departure - Departure Time of Disposition: 18:41 Disposition: Home, Self-Care 01 Condition: Fair Clinical Impression: Deep vein thrombosis (DVT) of left lower extremity Qualifiers: Affected thrombotic vein of extremity: popliteal Chronicity: acute Qualified Code(s): I82.432 - Acute embolism and thrombosis of left popliteal vein - Discharge Information *PRESCRIPTION DRUG MONITORING PROGRAM REVIEWED*: Not Applicable *COPY OF PRESCRIPTION DRUG MONITORING REPORT IN PATIENT GILLES: Not Applicable Instructions: Deep Vein Thrombosis Referrals: Lyle Garcia CONTINUING EDUCATION DIRECTOR [Primary Care Provider] - Forms: ED Department Discharge Care Plan Goals: The patient was advised of the examination results during the visit. The patient was given an injection of Lovenox and an oral dose of Warfarin while in the ED. The patient was discharged with a script for Lovenox to inject 70 mg SC 2 times per day for 5 days and Warfarin (5 mg) #30 to take 1 by mouth daily. The patient was encouraged to follow-up with her primary care facility for further direction on anticoagulation. If the patient has any additional symptoms or concerns, the patient should follow-up with her primary care facility or return to the emergency department. - My Orders Last 24 Hours: My Active Orders 10/21/17 18:14 COMPREHENSIVE METABOLIC PN,CMP [CHEM] Urgent INR,PT,PROTHROMBIN TIME [COAG] Stat - Assessment/Plan Last 24 Hours: My Active Orders 10/21/17 18:14 COMPREHENSIVE METABOLIC PN,CMP [CHEM] Urgent INR,PT,PROTHROMBIN TIME [COAG] Stat I have read and agree with the documentation that has been completed regarding this visit. By signing this record, I attest that the documentation was completed in my physical presence and is an accurate record of the encounter.
[2017-10-21] MEDS: Enoxaparin 80 MG/0.8 ML Syringe SUBCUT ONE (18:46)
[2017-10-21 18:51] VITALS: BP 140/97
== END 2017-10-21 18:53 | disposition home or self-care (01) ==
LOC: DL.ED 17:58
DX: I82.432 Acute embolism and thrombosis of left popliteal vein (principal); I10 Essential (primary) hypertension; F41.9 Anxiety disorder, unspecified; F32.9 Major depressive disorder, single episode, unspecified; E05.90 Thyrotoxicosis, unspecified without thyrotoxic crisis or storm; Z88.8 Allergy status to other drugs, medicaments and biological substances; Z79.899 Other long term (current) drug therapy; Z79.82 Long term (current) use of aspirin; Z90.49 Acquired absence of other specified parts of digestive tract
CPT/HCPCS: 36415; 80053; 85025; 85610; 96372; 99283; A9270; J1650

== ENCOUNTER 2017-12-24 07:02 | Emergency (ER) | payer BC ==
[2017-12-24] MEDS ORDERED: Sodium Chloride 0.9% 10 ML Syringe FLUSH PRN (07:10)
--- NOTE | 2017-12-24 07:18 | EDM.PDOC ---
ED HPI GENERAL MEDICAL PROBLEM - General Chief Complaint: Chest Pain Stated Complaint: SOB Time Seen by Provider: 12/24/17 07:04 Source of Information: Reports: Patient, RN, RN Notes Reviewed History Limitations: Reports: No Limitations - History of Present Illness INITIAL COMMENTS - FREE TEXT/NARRATIVE: Pt to ER with c/o severe chest pain. Patient states she was at work when the pain began in the mid-sternum. She states the pain has gotten progressively worse. Patient states she has lupus and a history blood clots in the legs. Patient states she has recently been taken off propranolol and started on labetolol for unknown heart problems. She states if the labetolol does not work they have considered ablation. She states she does not know the name of it but has been told that her doctor has only seen about a dozen cases. Patient denies chances of . Patient is anxious and hyperventilating. Rates chest pain 8/10. Onset: Today, Sudden Mid-Sternal Chest Pain Score (Numeric/FACES): 8 - Related Data Allergies Allergy/AdvReac Type Severity Reaction Status Date / Time zolpidem [From Ambien] Allergy Hallucinati Verified 12/24/17 07:06 ons doxylamine AdvReac Hallucinati Verified 12/24/17 07:06 ons Home Meds: Home Meds Omeprazole 20 mg PO DAILY PRN 11/03/16 [History] Levothyroxine 25 mcg PO DAILY 12/28/16 [History] DULoxetine HCl [Duloxetine HCl] 1 tab PO DAILY 10/16/17 [History] Past Medical History - Past Health History Medical/Surgical History: Denies Medical/Surgical History HEENT History: Reports: Allergic Rhinitis, Other (See Below) 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 Cardiovascular History: Reports: Arrhythmia, Hypertension, Other (See Below) Other Cardiovascular History: Tachycardia, palpitations, svt Respiratory History: Reports: None Gastrointestinal History: Reports: Other (See Below) Other Gastrointestinal History: Appendectomy done 2 yrs ago - 2012 Genitourinary History: Reports: None 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 pre eclampsia last and tachycardia Musculoskeletal History: Reports: RA, SLE Neurological History: Reports: None Psychiatric History: Reports: Anxiety, Depression, Panic Attack, Other (See Below) Other Psychiatric History: SOMATIZATION DISORDER Endocrine/Metabolic History: Reports: Hyperthyroidism Hematologic History: Reports: None Immunologic History: Reports: SLE Other Immunologic History: Lupus Oncologic (Cancer) History: Reports: None Dermatologic History: Reports: None - Infectious Disease History Infectious Disease History: Reports: C-Difficile, Chicken Pox - Past Surgical History Head Surgeries/Procedures: Reports: None HEENT Surgical History: Reports: Adenoidectomy, Tonsillectomy, Other (See Below) Other HEENT Surgeries/Procedures: ADENOIDECTOMY X2 Cardiovascular Surgical History: Reports: None GI Surgical History: Reports: Appendectomy Musculoskeletal Surgical History: Reports: None, Arthroscopic Knee Social & Family History - Family History Family Medical History: Noncontributory - Tobacco Use Smoking Status *Q: Never Smoker Second Hand Smoke Exposure: No - Caffeine Use Caffeine Use: Reports: None Other Caffeine Use: 1 cup daily - Recreational Drug Use Recreational Drug Use: No - Living Situation & Occupation Living situation: Reports: , with Spouse Occupation: Employed ED ROS GENERAL - Review of Systems Review Of Systems: ROS reveals no pertinent complaints other than HPI. ED EXAM, GENERAL - Physical Exam Exam: See Below Exam Limited By: Other (Severely anxious,) General Appearance: Alert, Anxious, Moderate Distress Eye Exam: Bilateral Eye: EOMI, Normal Inspection Ears: Normal External Exam, Hearing Grossly Normal Nose: Normal Inspection Throat/Mouth: Normal Inspection, Normal Voice, No Airway Compromise Head: Atraumatic, Normocephalic Neck: Normal Inspection, Supple, Non-Tender, Full Range of Motion (Female) Exam: Deferred Rectal (Female) Exam: Deferred Neurological: Alert, Oriented, CN II-XII Intact, Normal Cognition, Normal Gait, Normal Reflexes, No Motor/Sensory Deficits Psychiatric: Anxious, Tearful Skin Exam: Warm, Dry, Intact, Normal Color, No Rash Lymphatic: No Adenopathy EKG INTERPRETATION EKG Date: 12/24/17 Time: 07:03 Rhythm: NSR Rate (Beats/Min): 92 [place]: Normal P-Wave: Present QRS: Normal ST-T: Normal QT: Prolonged Comparison: No Change Course - Vital Signs Last Recorded V/S: Last Vital Signs Temp 97.9 F 12/24/17 08:47 Pulse 95 12/24/17 08:47 Resp 18 12/24/17 08:47 BP 121/82 12/24/17 08:47 Pulse Ox 98 12/24/17 08:47 - Orders/Labs/Meds Orders: Active Orders 24 hr Category Date Time Status EKG Documentation Completion [RC] STAT Care 12/24/17 07:10 Active Peripheral IV Care [RC] . DIRECTED Care 12/24/17 07:12 Active Chest 1V Frontal [CR] Stat Exams 12/24/17 07:10 Taken Peripheral IV Insertion Adult [OM.PC] Stat Oth 12/24/17 07:10 Ordered Labs: Laboratory Tests 12/24/17 12/24/17 12/24/17 Range/Units 07:10 07:10 07:10 WBC 9.8 (5.0-10.0) 10^3/uL RBC 4.24 (4.2-5.4) 10^6/uL Hgb 12.5 (12.0-16.0) g/dL Hct 37.6 (37.0-47.0) % MCV 88.7 (80-100) fL MCH 29.5 (27.0-34.0) pg MCHC 33.2 (33.0-35.0) g/dL Plt Count 310 (150-450) 10^3/uL Neut % (Auto) 61.3 (42.2-75.2) % Lymph % (Auto) 27.9 (20.5-50.1) % [place] % (Auto) 9.1 H (2-8) % Eos % (Auto) 1.4 (1.0-3.0) % Baso % (Auto) 0.3 (0.0-1.0) % ESR (0-20) mm/hr PT 9.1 (9.0-12.0) SEC INR 0.9 (0.9-1.2) D-Dimer, Quantitative (0-400) ng/mL Sodium 137 (135-145) mmol/L Potassium 3.8 (3.6-5.0) mmol/L Chloride 105 (101-111) mmol/L Carbon Dioxide 20.0 L (21.0-31.0) mmol/L Anion Gap 15.8 BUN 11 (7-18) mg/dL Creatinine 0.7 (0.6-1.3) mg/dL Est Cr Clr Drug Dosing 92.71 mL/min Estimated GFR (MDRD) > 60 BUN/Creatinine Ratio 15.71 Glucose 103 (74-105) mg/dL Calcium 9.2 (8.4-10.2) mg/dl Total Bilirubin 0.5 (0.2-1.0) mg/dL AST 40 (10-42) IU/L ALT 94 H (10-60) IU/L Alkaline Phosphatase 64 (42-121) IU/L Troponin I < 0.02 (0.00-0.02) ng/ml C-Reactive Protein (0.0-1.3) mg/dL Total Protein 7.4 (6.7-8.2) g/dl Albumin 4.1 (3.2-5.5) g/dl Globulin 3.3 Albumin/Globulin Ratio 1.24 Amylase 54 (28-100) U/L Lipase 23 (22-51) U/L Urine Color (YELLOW) Urine Appearance (CLEAR) Urine pH (5.0-9.0) Ur Specific [place] (1.005-1.030) Urine Protein (NEGATIVE) Urine Glucose (UA) (NEGATIVE) Urine Ketones (NEGATIVE) Urine Occult Blood (NEGATIVE) Urine Nitrite (NEGATIVE) Urine Bilirubin (NEGATIVE) Urine Urobilinogen (0.2-1.0) mg/dL Ur Leukocyte Esterase (NEGATIVE) Urine RBC /HPF Urine WBC (0-5/HPF) /HPF Ur Epithelial Cells /HPF Urine Bacteria (0-FEW/HPF) /HPF Urine Mucus /LPF Urine HCG, Qual Urine Opiates Screen (NEGATIVE) Ur Oxycodone Screen (NEGATIVE) Urine Methadone Screen (NEGATIVE) Ur Barbiturates Screen (NEGATIVE) U Tricyclic Antidepress (NEGATIVE) Ur Phencyclidine Scrn (NEGATIVE) Ur Amphetamine Screen (NEGATIVE) U Methamphetamines Scrn (NEGATIVE) Urine MDMA Screen (NEGATIVE) U Benzodiazepines Scrn (NEGATIVE) Urine Cocaine Screen (NEGATIVE) U Marijuana (THC) Screen (NEGATIVE) 12/24/17 12/24/17 12/24/17 Range/Units 07:10 07:10 07:10 WBC (5.0-10.0) 10^3/uL RBC (4.2-5.4) 10^6/uL Hgb (12.0-16.0) g/dL Hct (37.0-47.0) % MCV (80-100) fL MCH (27.0-34.0) pg MCHC (33.0-35.0) g/dL Plt Count (150-450) 10^3/uL Neut % (Auto) (42.2-75.2) % Lymph % (Auto) (20.5-50.1) % [place] % (Auto) (2-8) % Eos % (Auto) (1.0-3.0) % Baso % (Auto) (0.0-1.0) % ESR 9 (0-20) mm/hr PT (9.0-12.0) SEC INR (0.9-1.2) D-Dimer, Quantitative < 100 (0-400) ng/mL Sodium (135-145) mmol/L Potassium (3.6-5.0) mmol/L Chloride (101-111) mmol/L Carbon Dioxide (21.0-31.0) mmol/L Anion Gap BUN (7-18) mg/dL Creatinine (0.6-1.3) mg/dL Est Cr Clr Drug Dosing mL/min Estimated GFR (MDRD) BUN/Creatinine Ratio Glucose (74-105) mg/dL Calcium (8.4-10.2) mg/dl Total Bilirubin (0.2-1.0) mg/dL AST (10-42) IU/L ALT (10-60) IU/L Alkaline Phosphatase (42-121) IU/L Troponin I (0.00-0.02) ng/ml C-Reactive Protein 0.9 (0.0-1.3) mg/dL Total Protein (6.7-8.2) g/dl Albumin (3.2-5.5) g/dl Globulin Albumin/Globulin Ratio Amylase (28-100) U/L Lipase (22-51) U/L Urine Color (YELLOW) Urine Appearance (CLEAR) Urine pH (5.0-9.0) Ur Specific [place] (1.005-1.030) Urine Protein (NEGATIVE) Urine Glucose (UA) (NEGATIVE) Urine Ketones (NEGATIVE) Urine Occult Blood (NEGATIVE) Urine Nitrite (NEGATIVE) Urine Bilirubin (NEGATIVE) Urine Urobilinogen (0.2-1.0) mg/dL Ur Leukocyte Esterase (NEGATIVE) Urine RBC /HPF Urine WBC (0-5/HPF) /HPF Ur Epithelial Cells /HPF Urine Bacteria (0-FEW/HPF) /HPF Urine Mucus /LPF Urine HCG, Qual Urine Opiates Screen (NEGATIVE) Ur Oxycodone Screen (NEGATIVE) Urine Methadone Screen (NEGATIVE) Ur Barbiturates Screen (NEGATIVE) U Tricyclic Antidepress (NEGATIVE) Ur Phencyclidine Scrn (NEGATIVE) Ur Amphetamine Screen (NEGATIVE) U Methamphetamines Scrn (NEGATIVE) Urine MDMA Screen (NEGATIVE) U Benzodiazepines Scrn (NEGATIVE) Urine Cocaine Screen (NEGATIVE) U Marijuana (THC) Screen (NEGATIVE) 12/24/17 12/24/17 12/24/17 Range/Units 07:38 07:38 07:38 WBC (5.0-10.0) 10^3/uL RBC (4.2-5.4) 10^6/uL Hgb (12.0-16.0) g/dL Hct (37.0-47.0) % MCV (80-100) fL MCH (27.0-34.0) pg MCHC (33.0-35.0) g/dL Plt Count (150-450) 10^3/uL Neut % (Auto) (42.2-75.2) % Lymph % (Auto) (20.5-50.1) % [place] % (Auto) (2-8) % Eos % (Auto) (1.0-3.0) % Baso % (Auto) (0.0-1.0) % ESR (0-20) mm/hr PT (9.0-12.0) SEC INR (0.9-1.2) D-Dimer, Quantitative (0-400) ng/mL Sodium (135-145) mmol/L Potassium (3.6-5.0) mmol/L Chloride (101-111) mmol/L Carbon Dioxide (21.0-31.0) mmol/L Anion Gap BUN (7-18) mg/dL Creatinine (0.6-1.3) mg/dL Est Cr Clr Drug Dosing mL/min Estimated GFR (MDRD) BUN/Creatinine Ratio Glucose (74-105) mg/dL Calcium (8.4-10.2) mg/dl Total Bilirubin (0.2-1.0) mg/dL AST (10-42) IU/L ALT (10-60) IU/L Alkaline Phosphatase (42-121) IU/L Troponin I (0.00-0.02) ng/ml C-Reactive Protein (0.0-1.3) mg/dL Total Protein (6.7-8.2) g/dl Albumin (3.2-5.5) g/dl Globulin Albumin/Globulin Ratio Amylase (28-100) U/L Lipase (22-51) U/L Urine Color Yellow (YELLOW) Urine Appearance Slightly cloudy (CLEAR) Urine pH 6.0 (5.0-9.0) Ur Specific [place] 1.025 (1.005-1.030) Urine Protein Negative (NEGATIVE) Urine Glucose (UA) Negative (NEGATIVE) Urine Ketones Negative (NEGATIVE) Urine Occult Blood Negative (NEGATIVE) Urine Nitrite Negative (NEGATIVE) Urine Bilirubin Negative (NEGATIVE) Urine Urobilinogen 0.2 (0.2-1.0) mg/dL Ur Leukocyte Esterase Negative (NEGATIVE) Urine RBC 0-5 /HPF Urine WBC 0-5 (0-5/HPF) /HPF Ur Epithelial Cells Many H /HPF Urine Bacteria Few (0-FEW/HPF) /HPF Urine Mucus Few H /LPF Urine HCG, Qual Negative Urine Opiates Screen Negative (NEGATIVE) Ur Oxycodone Screen Negative (NEGATIVE) Urine Methadone Screen Negative (NEGATIVE) Ur Barbiturates Screen Negative (NEGATIVE) U Tricyclic Antidepress Negative (NEGATIVE) Ur Phencyclidine Scrn Negative (NEGATIVE) Ur Amphetamine Screen Negative (NEGATIVE) U Methamphetamines Scrn Negative (NEGATIVE) Urine MDMA Screen Negative (NEGATIVE) U Benzodiazepines Scrn Negative (NEGATIVE) Urine Cocaine Screen Negative (NEGATIVE) U Marijuana (THC) Screen Negative (NEGATIVE) Meds: Medications Discontinued Medications Generic Name Dose Route Start Last Admin Trade Name Freq PRN Reason Stop Dose Admin Lorazepam 1 mg 12/24/17 07:56 12/24/17 08:02 Ativan IVPUSH 12/24/17 07:57 1 mg ONETIME ONE Administration Sodium Chloride 10 ml 12/24/17 07:10 12/24/17 07:10 Saline Flush FLUSH 10 ml ASDIRECTED PRN Administration Keep Vein Open - Radiology Interpretation Free Text/Narrative:: Chest xray: No acute findings See rad report Departure - Departure Time of Disposition: 08:42 Disposition: Home, Self-Care 01 Condition: Fair Clinical Impression: Nonspecific chest pain Instructions: Nonspecific Chest Pain, [id number] Forms: ED Department Discharge Additional Instructions: Return to the ER with any further problems Follow up with your primary care facility Rest today - My Orders Last 24 Hours: My Active Orders 12/24/17 07:10 EKG Documentation Completion [RC] STAT Chest 1V Frontal [CR] Stat Peripheral IV Insertion Adult [OM.PC] Stat 12/24/17 07:12 Peripheral IV Care [RC] . DIRECTED - Assessment/Plan Last 24 Hours: My Active Orders 12/24/17 07:10 EKG Documentation Completion [RC] STAT Chest 1V Frontal [CR] Stat Peripheral IV Insertion Adult [OM.PC] Stat 12/24/17 07:12 Peripheral IV Care [RC] . DIRECTED
[2017-12-24 07:40] LABS: ANION GAP 15.8; CHLORIDE,CL 105 mmol/L (101-111); SODIUM,NA 137 mmol/L (135-145)
[2017-12-24] MEDS ORDERED: LORazepam 2 MG/ML Syringe IVPUSH ONE (07:56)
[2017-12-24 08:50] VITALS: BP 121/82
--- NOTE | 2017-12-26 18:11 | EKG ---
12/24/2017 - GOLDIE BALDERRAMA - FINDINGS: EKG per my reading, shows sinus rhythm at a rate of 90s. MOD /[id number]
== END 2017-12-24 08:48 | disposition home or self-care (01) ==
LOC: DL.ED 07:02
DX: R07.9 Chest pain, unspecified (principal); I10 Essential (primary) hypertension; Z79.899 Other long term (current) drug therapy
CPT/HCPCS: 36415; 71045; 80053; 80305; 81001; 81025; 82150; 83690; 84484; 85025; 85379; 85610; 85651; 86140; 93005; 96374; 99285; J2060; J7050

== ENCOUNTER 2018-09-13 15:07 | Emergency (ER) | payer BC ==
[2018-09-13 16:35] VITALS: BP 134/94
--- NOTE | 2018-09-13 16:50 | EDM.PDOC ---
<Taylor Oconnell - Last Filed: 09/13/18 17:43> ED HPI GENERAL MEDICAL PROBLEM - General Chief Complaint: Lower Extremity Injury/Pain Stated Complaint: CLOTTING DISORDER AND LEG IS PAINFUL Time Seen by Provider: 09/13/18 16:30 Source of Information: Reports: Patient History Limitations: Reports: No Limitations - History of Present Illness INITIAL COMMENTS - FREE TEXT/NARRATIVE: Patient presents to ER with CC of left leg pain that developed last night while she was sleeping. Patient reports that the pain is located at the posterior aspect of her knee. Patient denies any trauma or injury to this extremity. Patient also denies any fever, chills, shortness of breath, new chest pain ( states that she at baseline does have chest discomfort). Patient states that she did play softball yesterday, however this was not a new activity for her and she did not perform any unsual tasks then. Patient has PMH of LLE DVT, SLE with coagulopathy, elevated liver enzymes, and hypothyroidism. Patient denies any tobacco use, regular alcohol use, or drug use. 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 Cardiovascular History: Reports: Arrhythmia, Blood Clots/VTE/DVT, Hypertension, Other (See Below) Other Cardiovascular History: Tachycardia, palpitations, svt Respiratory History: Reports: Other (See Below) Other Respiratory History: 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 Gastrointestinal History: Reports: Other (See Below) Other Gastrointestinal History: Appendectomy done 2 yrs ago - 2012 Genitourinary History: Reports: None 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 pre 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 last and tachycardia Musculoskeletal History: Reports: Fracture, RA, SLE Neurological History: Reports: None, Headaches, Chronic Psychiatric History: Reports: Anxiety, Depression, Panic Attack, PTSD, Other ( See Below) Other Psychiatric History: SOMATIZATION DISORDER Endocrine/Metabolic History: Reports: Hypothyroidism, Vitamin D Deficiency Hematologic History: Reports: Anemia, Blood Transfusion(s), Iron Deficiency Immunologic History: Reports: SLE Other Immunologic History: Lupus Oncologic (Cancer) History: Reports: None Dermatologic History: Reports: None, Seborrheic Dermatitis - Infectious Disease History Infectious Disease History: Reports: C-Difficile, Chicken Pox - Past Surgical History Head Surgeries/Procedures: Reports: None HEENT Surgical History: Reports: Adenoidectomy, Tonsillectomy, Other (See Below) Other HEENT Surgeries/Procedures: ADENOIDECTOMY X2 Cardiovascular Surgical History: Reports: None Respiratory Surgical History: Reports: None GI Surgical History: Reports: Appendectomy, Colonoscopy, EGD Endocrine Surgical History: Reports: None Neurological Surgical History: Reports: None Musculoskeletal Surgical History: Reports: None, Arthroscopic Knee Oncologic Surgical History: Reports: None Dermatological Surgical History: Reports: None Social & Family History - Family History Family Medical History: Noncontributory - Tobacco Use Smoking Status *Q: Never Smoker - Caffeine Use Caffeine Use: Reports: Coffee, Soda Other Caffeine Use: 2-3 CANS OF CAFFIENATED SODA POP DAILY - Recreational Drug Use Recreational Drug Use: No - Living Situation & Occupation Living situation: Reports: , with Spouse Occupation: Employed Review of Systems - Review of Systems Review Of Systems: ROS reveals no pertinent complaints other than HPI. ED EXAM, GENERAL - Physical Exam Exam: See Below Exam Limited By: No Limitations General Appearance: Alert, WD/WN, No Apparent Distress Head: Atraumatic, Normocephalic Neck: Normal Inspection, Supple, Non-Tender, Full Range of Motion Respiratory/Chest: No Respiratory Distress, Lungs Clear, Normal Breath Sounds, No Accessory Muscle Use, Chest Non-Tender Cardiovascular: Normal Peripheral Pulses, Regular Rate, Rhythm, No Edema, No Gallop, No JVD, No Murmur, No Rub Peripheral Pulses: 2+: Popliteal (L), Popliteal (R), 3+: Radial (L), Radial (R) , Posterior Tibial (L), Posterior Tibial (R), Dorsalis Pedis (L), Dorsalis Pedis (R) GI/Abdominal: Normal Bowel Sounds, Soft, Non-Tender, No Organomegaly, No Distention, No Abnormal Bruit, No Mass Back Exam: Normal Inspection, Full Range of Motion, NT Extremities: Normal Inspection, Normal Range of Motion, No Pedal Edema, Normal Capillary Refill, Other (CMS intact to left extremity ). No: Non-Tender (pain to posterior aspect of left knee), Increased Warmth, Redness Neurological: Alert, Oriented, CN II-XII Intact, Normal Cognition, Normal Gait, Normal Reflexes, No Motor/Sensory Deficits Psychiatric: Normal Affect, Normal Mood Skin Exam: Warm, Dry, Intact, Normal Color, No Rash Course - Vital Signs Last Recorded V/S: Last Vital Signs Temp 96.6 F 09/13/18 16:34 Pulse 83 09/13/18 16:34 Resp 16 09/13/18 16:34 BP 134/94 H 09/13/18 16:34 Pulse Ox 99 09/13/18 16:34 - Orders/Labs/Meds Labs: Laboratory Tests 09/13/18 09/13/18 09/13/18 Range/Units 17:10 17:10 17:10 WBC 9.6 (5.0-10.0) 10^3/uL RBC 4.34 (4.2-5.4) 10^6/uL Hgb 12.8 (12.0-16.0) g/dL Hct 38.2 (37.0-47.0) % MCV 88.0 (80-100) fL MCH 29.5 (27.0-34.0) pg MCHC 33.5 (33.0-35.0) g/dL Plt Count 322 (150-450) 10^3/uL Neut % (Auto) 69.7 (42.2-75.2) % Lymph % (Auto) 20.0 L (20.5-50.1) % [place] % (Auto) 8.2 H (2-8) % Eos % (Auto) 1.7 (1.0-3.0) % Baso % (Auto) 0.4 (0.0-1.0) % PT 9.1 (9.0-12.0) SEC INR 0.9 (0.9-1.2) Sodium 139 (135-145) mmol/L Potassium 3.6 (3.6-5.0) mmol/L Chloride 106 (101-111) mmol/L Carbon Dioxide 22.0 (21.0-31.0) mmol/L Anion Gap 14.6 BUN 12 (7-18) mg/dL Creatinine 0.7 (0.6-1.3) mg/dL Est Cr Clr Drug Dosing TNP Estimated GFR (MDRD) > 60 BUN/Creatinine Ratio 17.14 Glucose 89 (74-105) mg/dL Calcium 9.2 (8.4-10.2) mg/dl Total Bilirubin 0.4 (0.2-1.0) mg/dL AST 28 (10-42) IU/L ALT 35 (10-60) IU/L Alkaline Phosphatase 54 (42-121) IU/L Total Protein 7.4 (6.7-8.2) g/dl Albumin 4.3 (3.2-5.5) g/dl Globulin 3.1 Albumin/Globulin Ratio 1.39 - Radiology Interpretation Free Text/Narrative:: Left lower extremity Ultrasound report: No evidence of acute deep vein thrombosis. Low level echoes present within the left popliteal vein consistent with the patient's history of old thrombus. All veins are compressible. See rad report. Departure - Departure Time of Disposition: 17:43 Disposition: Home, Self-Care 01 Condition: Good Clinical Impression: Left leg pain - Discharge Information *PRESCRIPTION DRUG MONITORING PROGRAM REVIEWED*: No *COPY OF PRESCRIPTION DRUG MONITORING REPORT IN PATIENT GILLES: No Instructions: Medical Screening Exam Referrals: PCP,None [Primary Care Provider] - Forms: ED Department Discharge Additional Instructions: Continue to monitor for any signs and symptoms concerning for DVT. Ultrasound and lab diagnostics negative for any indicators of this condition at this time. Activity as tolerated. Follow up in clinic with primary care provider. <Efrain Brandon - Last Filed: 09/13/18 17:57> Course - Re-Assessments/Exams Free Text/Narrative Re-Assessment/Exam: 09/13/18 17:56 I personally performed or re-performed the physical examination and medical decision making. I have verified all student documentation or findings, including history, physical exam and/or medical decision making.
[2018-09-13 17:38] LABS: ANION GAP 14.6; CHLORIDE,CL 106 mmol/L (101-111); SODIUM,NA 139 mmol/L (135-145)
== END 2018-09-13 17:57 | disposition home or self-care (01) ==
LOC: DL.ED 15:07
DX: M25.562 Pain in left knee (principal); I10 Essential (primary) hypertension; M06.9 Rheumatoid arthritis, unspecified; Z88.8 Allergy status to other drugs, medicaments and biological substances; Z90.49 Acquired absence of other specified parts of digestive tract; Z98.890 Other specified postprocedural states
CPT/HCPCS: 36415; 80053; 85025; 85610; 93971; 99284-25

== ENCOUNTER 2019-01-03 03:12 | Emergency (ER) | payer BC ==
[2019-01-03 03:21] VITALS: BP 134/100; PULSE 118
[2019-01-03 03:52] LABS: ANION GAP 13.6; CHLORIDE,CL 108 mmol/L (101-111); SODIUM,NA 140 mmol/L (135-145)
[2019-01-03] MEDS ORDERED: Acetaminophen 325 MG Tab PO ONE (04:06)
[2019-01-03] MEDS ORDERED: Amoxicillin 500 MG Cap PO ONE (04:09)
--- NOTE | 2019-01-03 04:18 | EDM.PDOC ---
ED HPI GENERAL MEDICAL PROBLEM - General Chief Complaint: Fever Stated Complaint: FEVER, CHILLS, SORE THROAT Time Seen by Provider: 01/03/19 03:22 Source of Information: Reports: Patient History Limitations: Reports: No Limitations - History of Present Illness INITIAL COMMENTS - FREE TEXT/NARRATIVE: ED with c/o waking at midnight with shaking chills, fever 101 and sore throat, Reports fine yesterday and when went to bed. No GI sx, No urinary c/o. Hx SLE and on monthly immunosuppressant due next week. 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 Cardiovascular History: Reports: Arrhythmia, Blood Clots/VTE/DVT, Hypertension, Other (See Below) Other Cardiovascular History: Tachycardia, palpitations, svt Respiratory History: Reports: Other (See Below) Other Respiratory History: 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 Gastrointestinal History: Reports: Other (See Below) Other Gastrointestinal History: Appendectomy done 2 yrs ago - 2012 Genitourinary History: Reports: None [employer] History: Reports: Other [employer] History: with pre eclampsia last and tachycardia Musculoskeletal History: Reports: Fracture, RA, SLE Neurological History: Reports: None, Headaches, Chronic Psychiatric History: Reports: Anxiety, Depression, Panic Attack, PTSD, Other ( See Below) Other Psychiatric History: SOMATIZATION DISORDER Endocrine/Metabolic History: Reports: Hypothyroidism, Vitamin D Deficiency Hematologic History: Reports: Anemia, Blood Transfusion(s), Iron Deficiency Immunologic History: Reports: SLE Other Immunologic History: Lupus Oncologic (Cancer) History: Reports: None Dermatologic History: Reports: None, Seborrheic Dermatitis - Infectious Disease History Infectious Disease History: Reports: C-Difficile, Chicken Pox - Past Surgical History Head Surgeries/Procedures: Reports: None HEENT Surgical History: Reports: Adenoidectomy, Tonsillectomy, Other (See Below) Other HEENT Surgeries/Procedures: ADENOIDECTOMY X2 Cardiovascular Surgical History: Reports: None Respiratory Surgical History: Reports: None GI Surgical History: Reports: Appendectomy, Colonoscopy, EGD Endocrine Surgical History: Reports: None Neurological Surgical History: Reports: None Musculoskeletal Surgical History: Reports: None, Arthroscopic Knee Oncologic Surgical History: Reports: None Dermatological Surgical History: Reports: None Social & Family History - Family History Family Medical History: Noncontributory - Tobacco Use Smoking Status *Q: Unknown Ever Smoked - Caffeine Use Caffeine Use: Reports: Coffee, Soda Other Caffeine Use: 2-3 CANS OF CAFFIENATED SODA POP DAILY - Alcohol Use Days Per Week of Alcohol Use: 2 Number of Drinks Per Day: 1 Total Drinks Per Week: 2 - Recreational Drug Use Recreational Drug Use: No - Living Situation & Occupation Living situation: Reports: , with Spouse Occupation: Employed ED ROS ENT - Review of Systems Review Of Systems: ROS reveals no pertinent complaints other than HPI. ED EXAM, ENT - Physical Exam Exam: See Below Exam Limited By: No Limitations General Appearance: Alert, Mild Distress Eye Exam: Bilateral Eye: EOMI, PERRL Ears: Normal External Exam, Normal TMs Nose: Normal Inspection Mouth/Throat: Pharyngeal Erythema (mild). No: Tonsillar Exudates Head: Atraumatic, Normocephalic, Other (cheeks flushed) Respiratory/Chest: No Respiratory Distress, Lungs Clear, Other (hoarse cough) Cardiovascular: Regular Rate, Rhythm, Tachycardia GI/Abdominal: Normal Bowel Sounds, Soft Extremities: Normal Inspection, Normal Range of Motion Psychiatric: Anxious Skin: Warm, Dry, Intact Course - Vital Signs Last Recorded V/S: Last Vital Signs Temp 97.9 F 01/03/19 03:20 Pulse 118 H 01/03/19 03:20 Resp 18 01/03/19 03:20 BP 134/100 H 01/03/19 03:20 Pulse Ox 100 01/03/19 03:20 - Orders/Labs/Meds Orders: Active Orders 24 hr Category Date Time Status CULTURE STREP A CONFIRMATION [] Stat Lab 01/03/19 03:21 Results STREP SCRN A RAPID W CULT CONF [] Stat Lab 01/03/19 03:21 Results Labs: Laboratory Tests 01/03/19 01/03/19 01/03/19 Range/Units 03:26 03:26 03:26 WBC 11.5 H (5.0-10.0) 10^3/uL RBC 4.26 (4.2-5.4) 10^6/uL Hgb 12.8 (12.0-16.0) g/dL Hct 37.1 (37.0-47.0) % MCV 87.1 (80-100) fL MCH 30.0 (27.0-34.0) pg MCHC 34.5 (33.0-35.0) g/dL Plt Count 278 (150-450) 10^3/uL Neut % (Auto) 80.1 H (42.2-75.2) % Lymph % (Auto) 9.8 L (20.5-50.1) % Boyle % (Auto) 9.2 H (2-8) % Eos % (Auto) 0.6 L (1.0-3.0) % Baso % (Auto) 0.3 (0.0-1.0) % Sodium 140 (135-145) mmol/L Potassium 3.6 (3.6-5.0) mmol/L Chloride 108 (101-111) mmol/L Carbon Dioxide 22.0 (21.0-31.0) mmol/L Anion Gap 13.6 BUN 11 (7-18) mg/dL Creatinine 0.7 (0.6-1.3) mg/dL Est Cr Clr Drug Dosing 91.90 mL/min Estimated GFR (MDRD) > 60 BUN/Creatinine Ratio 15.71 Glucose 101 (74-105) mg/dL Calcium 9.0 (8.4-10.2) mg/dl Total Bilirubin 0.9 (0.2-1.0) mg/dL AST 36 (10-42) IU/L ALT 54 (10-60) IU/L Alkaline Phosphatase 50 (42-121) IU/L C-Reactive Protein 0.9 (0.0-1.3) mg/dL Total Protein 7.0 (6.7-8.2) g/dl Albumin 4.1 (3.2-5.5) g/dl Globulin 2.9 Albumin/Globulin Ratio 1.41 Meds: Medications Discontinued Medications Generic Name Dose Route Start Last Admin Trade Name Elda PRN Reason Stop Dose Admin Acetaminophen 650 mg 01/03/19 04:06 Tylenol PO 01/03/19 04:07 NOW ONE Amoxicillin 500 mg 01/03/19 04:09 Amoxil PO 01/03/19 04:10 ONETIME ONE Departure - Departure Time of Disposition: 04:15 Disposition: Home, Self-Care 01 Condition: Good Clinical Impression: History of systemic lupus erythematosus (SLE), Immunosuppressed status URI (upper respiratory infection) Qualifiers: URI type: unspecified URI Qualified Code(s): J06.9 - Acute upper respiratory infection, unspecified Pharyngitis Qualifiers: Pharyngitis/tonsillitis etiology: unspecified etiology Qualified Code(s): J02.9 - Acute pharyngitis, unspecified - Discharge Information *PRESCRIPTION DRUG MONITORING PROGRAM REVIEWED*: No *COPY OF PRESCRIPTION DRUG MONITORING REPORT IN PATIENT GILLES: No Instructions: Fever, Adult, [id number] Additional Instructions: increase fluids humidifier in room tylenol 650mg every 4 hours as needed for fever amoxicillin 500mg one three times daily for 7 days clinic follow up this week if symptoms worsen - My Orders Last 24 Hours: My Active Orders 01/03/19 03:21 CULTURE STREP A CONFIRMATION [RM] Stat STREP SCRN A RAPID W CULT CONF [] Stat - Assessment/Plan Last 24 Hours: My Active Orders 01/03/19 03:21 CULTURE STREP A CONFIRMATION [RM] Stat STREP SCRN A RAPID W CULT CONF [RM] Stat
== END 2019-01-03 04:22 | disposition home or self-care (01) ==
LOC: DL.ED 03:12
DX: J02.9 Acute pharyngitis, unspecified (principal); M32.9 Systemic lupus erythematosus, unspecified; I10 Essential (primary) hypertension; Z79.899 Other long term (current) drug therapy; Z98.890 Other specified postprocedural states; Z90.49 Acquired absence of other specified parts of digestive tract; Z88.8 Allergy status to other drugs, medicaments and biological substances
CPT/HCPCS: 36415; 80053; 85025; 86140; 87081; 87430; 99284; A9270-GY

== ENCOUNTER 2021-06-10 11:25 | Emergency (ER) | payer OTHER ==
[2021-06-10 11:42] VITALS: BP 133/100; PULSE 76
[2021-06-10] MEDS ORDERED: Ondansetron 4 MG/2 ML SDV IV ONE (11:43)
[2021-06-10] MEDS ORDERED: HYDROmorphone 1 MG/ML Syringe IVPUSH ONE ×2 (11:44→12:19)
[2021-06-10] MEDS ORDERED: Sodium Chloride 0.9% 1,000 ML IV ONE (11:44)
[2021-06-10] MEDS ORDERED: Sodium Chloride 0.9% 10 ML Syringe FLUSH PRN (11:44)
[2021-06-10 12:19] LABS: ANION GAP 17.7 mEq/L (7-13); CHLORIDE,CL 102 mmol/L (98-107); SODIUM,NA 138 mmol/L (136-145)
[2021-06-10] MEDS ORDERED: Ketorolac 30 MG/ML SDV IVPUSH ONE (12:20)
== END 2021-06-10 13:18 | disposition home or self-care (01) ==
LOC: DL.ED 11:25
DX: R10.11 Right upper quadrant pain (principal); R07.89 Other chest pain; R74.8 Abnormal levels of other serum enzymes; I10 Essential (primary) hypertension; Z88.8 Allergy status to other drugs, medicaments and biological substances
CPT/HCPCS: 36415; 80053; 81001; 81025; 82150; 83690; 85025; 86140; 87086; 93005; 96374; 96375; 96376; 99284; J1170; J1885; J2405; J7030

== ENCOUNTER 2022-05-03 23:03 | Emergency (ER) | payer BC, OTHER ==
[2022-05-03] MEDS ORDERED: Ondansetron 4 MG/2 ML SDV IVPUSH ONE (23:21)
[2022-05-03] MEDS ORDERED: Sodium Chloride 0.9% 1,000 ML IV SCH (23:30)
[2022-05-03 23:47] VITALS: BP 122/91; PULSE 95
[2022-05-04] MEDS ORDERED: Ketorolac 30 MG/ML SDV IVPUSH ONE (00:08)
[2022-05-04] MEDS ORDERED: Sodium Chloride 0.9% 1,000 ML IV SCH (00:15)
[2022-05-04 00:20] LABS: CORONAVIRUS COVID-19 NAA NEGATIVE (NEGATIVE); RESPIRATORY SYNCYTIAL VIR NAA NEGATIVE (NEGATIVE)
[2022-05-04] MEDS ORDERED: Ondansetron 4 MG/2 ML SDV IVPUSH ONE (01:20)
== END 2022-05-04 01:47 | disposition home or self-care (01) ==
LOC: DL.ED 23:03
DX: E86.0 Dehydration (principal); E87.6 Hypokalemia; R51.9 Headache, unspecified; I10 Essential (primary) hypertension; Z88.8 Allergy status to other drugs, medicaments and biological substances; Z20.822 Contact with and (suspected) exposure to COVID-19
CPT/HCPCS: 0241U; 36415; 80053; 85027; 96361; 96374; 96375; 96376; 99284; 99284-25; J1885; J2405; J7030

== ENCOUNTER 2022-11-11 20:59 | Emergency (ER) | payer BC ==
[2022-11-11 22:07] VITALS: BP 135/101; PULSE 96
[2022-11-11] MEDS ORDERED: Ibuprofen 600 MG Tab PO ONE (22:37)
== END 2022-11-11 23:15 | disposition home or self-care (01) ==
LOC: DL.ED 20:59
DX: S90.31XA Contusion of right foot, initial encounter (principal); S90.32XA Contusion of left foot, initial encounter; I10 Essential (primary) hypertension; Z86.16 Personal history of COVID-19; Z79.899 Other long term (current) drug therapy; Z88.8 Allergy status to other drugs, medicaments and biological substances; W20.8XXA Other cause of strike by thrown, projected or falling object, initial encounter
CPT/HCPCS: 73630-LT; 73630-RT; 99283; A9270-GY

== ENCOUNTER 2023-05-04 19:03 | Emergency (ER) | payer BC ==
[2023-05-04] MEDS ORDERED: Amoxicillin/Clavulanate K 875-125 MG Tab PO ONE (20:24)
[2023-05-04 20:45] VITALS: BP 129/93; PULSE 88
== END 2023-05-04 20:42 | disposition home or self-care (01) ==
LOC: DL.ED 19:03
DX: J01.00 Acute maxillary sinusitis, unspecified (principal); I10 Essential (primary) hypertension; Z88.8 Allergy status to other drugs, medicaments and biological substances; Z79.899 Other long term (current) drug therapy; Z86.16 Personal history of COVID-19; Z90.49 Acquired absence of other specified parts of digestive tract; Z90.710 Acquired absence of both cervix and uterus
CPT/HCPCS: 99283; A9270-GY

== ENCOUNTER 2023-10-11 11:49 | Emergency (ER) | payer BC ==
[2023-10-11] MEDS: Sodium Chloride 0.9% 1,000 ML IV ONE (13:36)
[2023-10-11] MEDS: Sodium Chloride 0.9% 10 ML Syringe FLUSH PRN (13:36)
[2023-10-11 13:43] LABS: HEMATOCRIT 41.4 % (37.0-47.0); HEMOGLOBIN 13.9 g/dL (12.0-16.0); MEAN CORPUSCULAR HEMOGLOBIN 30.6 pg (27.0-34.0); MEAN CORPUSCULAR HGB CONC 33.6 g/dL (33.0-35.0); MEAN CORPUSCULAR VOLUME 91.2 fL (80-100); PLATELET COUNT,PLT 317 10^3/uL (150-450); RED BLOOD CELL COUNT 4.54 10^6/uL (4.2-5.4); WHITE BLOOD CELL COUNT,WBC 9.7 10^3/uL (5.0-10.0)
[2023-10-11 13:47] LABS: BASOPHILS PERCENT AUTO 0.2 % (0.0-1.0); EOSINOPHILS PERCENT AUTO 0.6 % (1.0-3.0); LYMPHOCYTES PERCENT AUTO 13.3 % (20.5-50.1); MONOCYTES PERCENT AUTO 7.5 % (2-8); NEUTROPHILS PERCENT AUTO 78.4 % (42.2-75.2)
[2023-10-11 14:02] LABS: A/G RATIO 1.2; ALANINE AMINOTRANSFERASE,ALT 103 U/L (14-59); ALBUMIN 4.5 g/dL (3.4-5.0); ALKALINE PHOSPHATASE 69 U/L (46-116); ANION GAP 16.1 mEq/L (7-13); ASPARTATE AMNIOTRANSFERASE,AST 52 U/L (15-37); BILIRUBIN TOTAL 0.6 mg/dL (0.2-1.0); BLOOD UREA NITROGEN,BUN 11 mg/dL (7-18); BUN/CREATININE RATIO 13.4 (No establ ref range); CARBON DIOXIDE,CO2 25 mmol/L (21-32); CHLORIDE,CL 104 mmol/L (98-107); CREATININE 0.82 mg/dL (0.55-1.02); EST CRCL DRUG DOSING (CG) 75.01 mL/min; GLUCOSE RANDOM 95 mg/dL (70-99); MAGNESIUM 1.8 mg/dL (1.8-2.4); POTASSIUM,K 4.1 mmol/L (3.5-5.1); PROTEIN TOTAL,TP 8.4 g/dL (6.4-8.2); SODIUM,NA 141 mmol/L (136-145)
[2023-10-11 14:06] LABS: ESTIMATED GFR 98 mL/min (>=60)
[2023-10-11 14:17] LABS: BAND PERCENT MAN 3 %; LYMPHOCYTES PERCENT MAN 12 % (20-50); MONOCYTES PERCENT MAN 4 % (2-8); SEG NEUTROPHILS PERCENT MAN 81 % (42-75)
[2023-10-11 15:54] LABS: APPEARANCE,URINE SLIGHTLY CLOUDY (CLEAR); BILIRUBIN,URINE NEGATIVE (NEGATIVE); COLOR,URINE YELLOW (YELLOW); GLUCOSE,URINE NEGATIVE (NEGATIVE); KETONES,URINE NEGATIVE (NEGATIVE); LEUKOCYTE ESTERASE,URINE NEGATIVE (NEGATIVE); NITRITE,URINE NEGATIVE (NEGATIVE); OCCULT BLOOD,URINE TRACE-INTACT (NEGATIVE); PROTEIN,URINE NEGATIVE (NEGATIVE); UROBILINOGEN,URINE 0.2 mg/dL (0.2-1.0)
[2023-10-11] MEDS: LORazepam 2 MG/ML SDV IVPUSH ONE (15:56)
[2023-10-11 16:03] LABS: BACTERIA,URINE MANY /HPF (0-FEW/HPF); EPITHELIAL CELLS,URINE MANY /HPF (NOT SEEN); MUCUS,URINE FEW /LPF (NOT SEEN); RBC,URINE 0-5 /HPF (0-5)
[2023-10-11 16:04] LABS: AMORPHOUS SEDIMENT,URINE FEW /HPF (NOT SEEN)
[2023-10-11] MEDS: Gadobenate Dimeglumine 529 MG/ML 15 ML SDV IVPUSH ONE (18:03)
[2023-10-11 20:47] VITALS: BP 144/96; PULSE 99
== END 2023-10-11 20:31 | disposition home or self-care (01) ==
LOC: DL.ED 11:49
DX: R94.02 Abnormal brain scan (principal); E03.9 Hypothyroidism, unspecified; Z88.8 Allergy status to other drugs, medicaments and biological substances; Z79.899 Other long term (current) drug therapy; Z86.16 Personal history of COVID-19; Z90.710 Acquired absence of both cervix and uterus
CPT/HCPCS: 36415; 70551; 72156; 72157; 80053; 81001; 83735; 84484; 85025; 93005; 96361; 96374; 99284; A9577; J2060; J7030; J3490

== ENCOUNTER 2024-01-02 00:30 | Emergency (ER) | payer SELFPAY ==
[2024-01-02 01:15] VITALS: BP 145/90; PULSE 75
[2024-01-02 01:31] LABS: BASOPHILS PERCENT AUTO 0.3 % (0.0-1.0); EOSINOPHILS PERCENT AUTO 1.8 % (1.0-3.0); HEMATOCRIT 37.2 % (37.0-47.0); HEMOGLOBIN 12.3 g/dL (12.0-16.0); LYMPHOCYTES PERCENT AUTO 20.6 % (20.5-50.1); MEAN CORPUSCULAR HEMOGLOBIN 30.4 pg (27.0-34.0); MEAN CORPUSCULAR HGB CONC 33.1 g/dL (33.0-35.0); MEAN CORPUSCULAR VOLUME 92.1 fL (80-100); MONOCYTES PERCENT AUTO 9.2 % (2-8); NEUTROPHILS PERCENT AUTO 68.1 % (42.2-75.2); PLATELET COUNT,PLT 254 10^3/uL (150-450); RED BLOOD CELL COUNT 4.04 10^6/uL (4.2-5.4); WHITE BLOOD CELL COUNT,WBC 9.3 10^3/uL (5.0-10.0)
[2024-01-02 01:53] LABS: A/G RATIO 1.2; ALBUMIN 4.2 g/dL (3.4-5.0); ANION GAP 14.8 mEq/L (7-13); BILIRUBIN TOTAL 0.6 mg/dL (0.2-1.0); BUN/CREATININE RATIO 11.2 (No establ ref range); C-REACTIVE PROTEIN 1.69 ng/dL (<=0.50); CALCIUM 9.8 mg/dL (8.5-10.1); CREATININE 0.8 mg/dL (0.55-1.02); EST CRCL DRUG DOSING (CG) 76.89 mL/min; POTASSIUM,K 3.8 mmol/L (3.5-5.1); PROTEIN TOTAL,TP 7.6 g/dL (6.4-8.2)
[2024-01-02] MEDS: Take Home: Amoxicillin/Clavulanate K 875-125 MG Tab, 6 Tab Pack PO ONE (02:19)
[2024-01-02] MEDS: Amoxicillin/Clavulanate K 875-125 MG Tab PO ONE (02:19)
[2024-01-02] MEDS: Ketorolac 30 MG/ML SDV IM ONE (02:21)
== END 2024-01-02 02:39 | disposition home or self-care (01) ==
LOC: DL.ED 00:30
DX: K02.9 Dental caries, unspecified (principal); K04.7 Periapical abscess without sinus; Z86.16 Personal history of COVID-19; Z90.49 Acquired absence of other specified parts of digestive tract; Z90.710 Acquired absence of both cervix and uterus; Z88.6 Allergy status to analgesic agent; Z91.048 Other nonmedicinal substance allergy status
CPT/HCPCS: 36415; 64400; 80053; 85025; 86140; 90471; 99283; A9270; J1885